=== PATIENT | female | born 1940 | race Caucasian/White ===

== ENCOUNTER 2024-02-09 13:56 | Outpatient (CLI) | payer MEDICARE, SELFPAY | END 2024-02-09 23:59 | disposition home or self-care (01) | LOC: LAB.DROPOF 02-10 13:57 | PROVIDERS: PCP Student in an Organized Health Care Education/Training Program; Visit Provider Student in an Organized Health Care Education/Training Program | DX: R05.9 Cough, unspecified (principal); U07.1 COVID-19 | CPT/HCPCS: 87635 ==

== ENCOUNTER 2024-11-12 10:28 | Outpatient (CLI) | payer MEDICARE, SELFPAY ==
--- NOTE | 2024-11-12 10:30 | XR_ITS ---
PROCEDURE INFORMATION: Exam: XR Right Elbow Exam date and time: 11/12/2024 10:40 AM Age: 84 years old Clinical indication: Pain; Elbow; Right; Additional info: Pain, swelling, bruise, limited rom TECHNIQUE: Imaging protocol: Radiologic exam of the right elbow. Views: 3 or more views. COMPARISON: No relevant prior studies available. 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 Soft tissues: Normal. IMPRESSION: No acute findings. 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
== END 2024-11-12 23:59 | disposition home or self-care (01) ==
LOC: RAD 10:30
PROVIDERS: PCP Nurse Practitioner Family; Visit Provider Nurse Practitioner Family
DX: M19.021 Primary osteoarthritis, right elbow (principal); R52 Pain, unspecified; R60.9 Edema, unspecified; R29.898 Other symptoms and signs involving the musculoskeletal system; T14.8XXA Other injury of unspecified body region, initial encounter
CPT/HCPCS: 73080